=== PATIENT | female | born 1955 | race Two or more races ===

== ENCOUNTER 2024-01-29 02:54 | Inpatient (IN) | payer OTHER ==
[~2024-01-29] VITALS: Ht 154.9 cm; Wt 74.0 kg
[2024-01-29] VITALS (7 sets, daily range): BP systolic 117–126; BP diastolic 51–65; PULSE 70–87; RESP 18; TEMP 97.5–99.7; O2SAT 91–95
--- NOTE | 2024-01-29 03:35 | ED.PDOC ---
History of Present Illness HPI Comments 68-year-old female with PMHx COPD, Breast Cancer, Hypothyroidism brought in by EMS presents with a chief complaint of SOB, chest pain, and constipation x 3 days. Patient is a poor historian. Patient mentions that she has been having progressively worse SOB over the last 3 days. Patient mentions that her inhaler has not been providing any relief either. Patient is not on home oxygen, but arrives with oxygen via NC from EMS. Chief Complaint: Shortness of Breath Time Seen by MD: 03:17 Primary Care Provider: Albert Reviewed Notes: Medications, Allergies Allergies: Coded Allergies: NO KNOWN ALLERGIES (Unverified , 01/29/24) Information Source: Patient Mode of Arrival: EMS Severity: Moderate Timing: Days Duration: Since onset Prehospital treatment: Oxygen Review of Systems: REVIEW OF SYSTEMS: No fever, no chills, or fatigue HEENT: No sore throat, no earache, no congestion, no neck pain. Cardiac: Positive chest pain. No palpitations. Lungs: Positive shortness of breath, positive cough. GI: No nausea, no vomiting, no diarrhea, pause constipation, no abdominal pain : No dysuria, frequency, or urgency. No hematuria. Musculoskeletal: Positive shoulder pain , no joint swelling, no extremity edema. Skin: No rash, no itching. Neuro: No headache, no dizziness, no weakness Vital Signs Vital Signs Date Time Temp Pulse Resp B/P (MAP) Pulse Ox O2 Delivery O2 Flow Rate FiO2 01/29/24 04:06 17 94 Nasal Cannula* 2 28 01/29/24 03:35 71 01/29/24 03:05 99.2 120/64 (82) Physical Exam General: Awake, alert and oriented. No acute distress. Skin: Skin in warm, dry and intact. Appropriate color for ethnicity. Nailbeds pink with no cyanosis. HEENT: Nasal cannula in place. The head is normocephalic and atraumatic. Conjunctivae are clear without exudates or hemorrhage. Sclera is non-icteric. EOM are intact. No signs of nystagmus. Eyelids are normal in appearance without swelling or lesions. Oral mucosa is pink and moist Neck: The neck is supple with normal range of motion. No JVD. Cardiac: Heart rate and rhythm are normal. No murmurs, gallops, or rubs are auscultated. Respiratory: No signs of respiratory distress. Positive wheezing. Abdominal: Abdomen is soft, non-tender without distention. Bowel sounds are present and normoactive in all four quadrants. Extremities: Upper and lower extremities are atraumatic in appearance without deformity or edema. Neurological: The patient is awake, alert and oriented to person, place, and time with normal speech. Speech is clear. There is no facial asymmetry. Psychiatric: Appropriate mood and affect. Good judgement and insight. No visual or auditory hallucinations. 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 Was a procedure done?: No EKG EKG : Pulse Rate (adult): 71 Eleele: Normal Cardiac Rhythm: NSR Block: None Hypertrophy: None ST: Normal Comments No STEMI. Differential Dx Considerations may include: Differential diagnoses considered include acute ischemic coronary syndrome, aortic dissection, cardiac tamponade, mediastinitis, pulmonary embolus, pneumothorax, tension pneumothorax, esophageal rupture, coronary artery vasospasm, myocarditis, pericarditis, pneumonia, pulmonary edema, esophageal tear, pancreatitis, aortic stenosis, dilated cardiomyopathy, hypertrophic cardiomyopathy, mitral valve prolapse, malignancy, pleuritis, pneumomediastinum, primary pulmonary hypertension, cholecystitis, esophageal spasm, esophagus, gastritis, GERD, peptic ulcer disease, costochondritis, fibromyalgia, rib fracture, herpes zoster, radicular syndromes, thoracic outlet syndrome, somatization. X-Ray, Labs, Meds, VS Vital Signs Date Time Temp Pulse Resp B/P (MAP) Pulse Ox O2 Delivery O2 Flow Rate FiO2 01/29/24 04:06 17 94 Nasal Cannula* 2 28 01/29/24 04:06 94 Nasal Cannula* 2 28 01/29/24 03:35 71 01/29/24 03:05 99.2 64 21 120/64 (82) 90 01/29/24 02:59 71 Lab Test 01/29/24 04:15 01/29/24 03:48 01/29/24 03:30 Range/Units White Blood Count 9.3 4.4-10.8 10^3/uL Red Blood Count 3.09 L 4.0-5.20 10^6/uL Hemoglobin 11.6 L 12.2-16.2 g/dL Hematocrit 33.6 L 36.0-46.0 % Mean Corpuscular Volume 108.6 H 80.0-100.0 fL Mean Corpuscular Hemoglobin 37.5 H 28.0-32.0 pg Mean Corpuscular Hemoglobin Concent 34.5 32.0-36.0 g/dL Red Cell Distribution Width 16.2 H 11.8-14.3 % Platelet Count 282 140-450 10^3/uL Mean Platelet Volume 8.3 6.9-10.8 fL Neutrophils (%) (Auto) 64.3 37.0-80.0 % Lymphocytes (%) (Auto) 25.8 10.0-50.0 % Monocytes (%) (Auto) 7.6 0.0-12.0 % Eosinophils (%) (Auto) 1.0 0.0-7.0 % Basophils (%) (Auto) 1.3 0.0-2.0 % Neutrophils # (Auto) 6.0 1.6-8.6 10 ^3/uL Lymphocytes # (Auto) 2.4 0.4-5.4 10 ^3/uL Monocytes # (Auto) 0.7 0-1.3 10 ^3/uL Eosinophils # (Auto) 0.1 0-0.8 10 ^3/uL Basophils # (Auto) 0.1 0-0.2 10 ^3/uL Nucleated Red Blood Cells 0.2 % D-Dimer, Quantitative 0.78 H 0.0-0.49 mg/L FEU Sodium Level 139 136-145 mmol/L Potassium Level 4.0 3.5-5.1 mmol/L Chloride Level 103 98-107 mmol/L Carbon Dioxide Level 29 20-31 mmol/L Anion Gap 7 5-15 Blood Urea Nitrogen 9 9-23 mg/dL Creatinine 0.70 0.550-1.02 mg/dL Glomerular Filtration Rate Calc 94 >90 mL/min BUN/Creatinine Ratio 12.9 10.0-20.0 Serum Glucose 120 H 74-106 mg/dL Calcium Level 9.7 8.7-10.4 mg/dL Total Bilirubin 0.9 0.2-1.0 mg/dL Aspartate Amino Transferase (AST) 36 13-40 U/L Alanine Aminotransferase (ALT) 46 H 7-40 U/L Alkaline Phosphatase 87 46-116 U/L Troponin I High Sensitivity 5 </=34 ng/L B-Type Natriuretic Peptide 84.80 0-100 pg/mL Total Protein 7.2 5.7-8.2 g/dL Albumin 4.1 3.2-4.8 g/dL Blood Gas Specimen Type Arterial Blood Gas Sample Site Left radial Blood Gas Patient Temperature 37.0 Arterial Blood Date Drawn [id number] Arterial Blood pH 7.404 7.350-7.450 Arterial Blood Partial Pressure CO2 36.3 32.0-45.0 mmHg Arterial Blood Partial Pressure O2 76.2 L 83.0-108.0 mmHg Arterial Blood HCO3 22.2 21.0-28.0 mmol/L Arterial Blood Oxygen Saturation 94.5 94.0-98.0 % Arterial Blood Base Excess -2.1 L -2.0-3.0 mmol/L Arterial Blood Oxyhemoglobin 93.1 L 94.0-98.0 % Arterial Blood Carboxyhemoglobin 1.2 0.5-1.5 % Arterial Blood Methemoglobin 0.3 0.0-1.5 % Phani Test Modified Blood Gas Total Hemoglobin 12.20 12.0-16.0 g/dL Blood Gas Liter Flow 2.00 Blood Gas Modality Nasal cannula FiO2 % 28.0 Influenza Type A Antigen Negative Negative Influenza Type B Antigen Negative Negative SARS-CoV-2 Antigen (Rapid) Negative NEGATIVE Current Medications Medications (Trade) Dose Ordered Sig/Daniela Route Start Time Stop Time Status Last Admin Albuterol (Ventolin Medneb) 2.5 mg ONCE ONCE NEB 01/29/24 03:45 01/29/24 03:46 DC 01/29/24 03:57 Ipratropium Miles (Atrovent Medneb) 0.5 mg ONCE ONCE NEB 01/29/24 03:45 01/29/24 03:46 DC 01/29/24 03:57 Time of 1ST Reevaluation: 03:47 Reevaluation 1ST: Unchanged Patient Education/Counseling: Diagnosis, Treatment, Prognosis Family Education/Counseling: No Family Present Departure 1 Departure Time of Disposition: 05:41 Impression: Primary Impression: Chest pain Additional Impressions: Shortness of breath Hypoxia Disposition: 30 STILL A PATIENT Condition: Stable Comments 68-year-old female with history of COPD, breast cancer presents with chest pain, shortness of breath, hypoxia. D-dimer positive. Sign out to oncoming provider pending CT angiogram results and disposition Extensive evaluation was performed in attempt to identify or rule out: (See differential diagnosis section) The following tests were ordered, and results were reviewed by me: (See diagnostic results section) The following test were independently interpreted by me: Chest x-ray-no acute disease, EKG I reviewed and agreed with the following test results read by other providers: Chest x-ray I reviewed the following notes from the pt's past medical encounters: (None available at this time) Additional information was gathered from interviewing the following independent historians: N/A Discussion of management or test interpretation with external physician/other qualified health resident care aid: N/A Addressed one or more chronic illnesses with severe exacerbation, progression, or side effects of treatment: COPD an acute or chronic illness that poses a threat to life or bodily function: Hypoxia Decision regarding hospitalization or escalation of hospital level of care: Risk and benefits of admission for further treatment of patient's condition was considered. Due to patient's current clinical condition, high risk of decline and poor outcome if discharged and need for further inpatient management and monitoring, patient will be admitted to the hospital. Critical Care Note Critical Care Time?: No Stability Stability form required: No I personally scribed for ANDREA HARRIS MD ([email or web address]) on 01/29/24 at 03:35. Electronically submitted by Puma Prieto ([email or web address]). ANDREA HARRIS MD Jan 29, 2024 03:35
[2024-01-29] MEDS: ALBUTEROL SULF 2.5 MG/0.5ML(0.5%) NEB SOLN NEB ONE ×2 (03:57→07:30)
[2024-01-29] MEDS: IPRATROPIUM BROM 0.5 MG/2.5ML INH SOL NEB ONE ×2 (03:57→07:30)
[2024-01-29 04:16] LABS: Base Excess -2.1 mmol/L (-2.0-3.0)
[2024-01-29 04:27] LABS: Basophils # (auto) 0.1 10 ^3/uL (0-0.2); Eosinophils # (auto) 0.1 10 ^3/uL (0-0.8); Hemoglobin 11.6 g/dL (12.2-16.2); Lymphocytes # (auto) 2.4 10 ^3/uL (0.4-5.4); Red Cell Distribution Width 16.2 % (11.8-14.3)
[2024-01-29 04:29] LABS: Basophils % (auto) 1.3 % (0.0-2.0); Hematocrit 33.6 % (36.0-46.0); Lymphocytes % (auto) 25.8 % (10.0-50.0); Mean Corpuscular Hemoglobin 37.5 pg (28.0-32.0); Mean Corpuscular Hgb Conc. 34.5 g/dL (32.0-36.0); Mean Corpuscular Volume 108.6 fL (80.0-100.0); Monocytes # (auto) 0.7 10 ^3/uL (0-1.3); Monocytes % (auto) 7.6 % (0.0-12.0); Neutrophils % (auto) 64.3 % (37.0-80.0); Nucleated Red Blood Cells % 0.2 %; Platelet Count (auto) 282 10^3/uL (140-450); Red Blood Cells 3.09 10^6/uL (4.0-5.20); White Blood Cell 9.3 10^3/uL (4.4-10.8)
--- NOTE | 2024-01-29 04:29 | DVH ---
CHEST RADIOGRAPH Indication: Shortness of breath Technique: Single frontal view of the chest was obtained Comparison: None IMPRESSION: There is cardiomegaly. The lungs appear clear without focal airspace opacity, effusion, pneumothorax. Mild interstitial prominence.
[2024-01-29 04:54] LABS: Albumin 4.1 g/dL (3.2-4.8); Alkaline Phosphatase 87 U/L (46-116); Anion Gap 7 (5-15); Aspartate Aminotransferase 36 U/L (13-40); BUN/Creatinine Ratio 12.9 (10.0-20.0); Blood Urea Nitrogen 9 mg/dL (9-23); Calcium 9.7 mg/dL (8.7-10.4); Carbon Dioxide 29 mmol/L (20-31); Chloride 103 mmol/L (98-107); Sodium 139 mmol/L (136-145)
[2024-01-29 04:55] LABS: Bilirubin, Total 0.9 mg/dL (0.2-1.0); Total Protein 7.2 g/dL (5.7-8.2)
[2024-01-29 05:10] LABS: Alanine Aminotransferase 46 U/L (7-40); Glucose 120 mg/dL (74-106)
[2024-01-29 05:25] LABS: COVID19 ANTIGEN SOFIA FIA NEGATIVE (NEGATIVE); Rapid Influenza A Negative (Negative); Rapid Influenza B Negative (Negative)
--- NOTE | 2024-01-29 06:14 | ECG ---
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
[2024-01-29] MEDS: ENOXAPARIN SOD 80 MG/0.8ML SYRINGE SC ONE (07:34)
[2024-01-29] MEDS: methylPREDNISolone SOD SUCC 125 MG/2 ML VL IV ONE (07:34)
[2024-01-29] MEDS ORDERED: ACETAMINOPHEN 325 MG TAB PO PRN (10:45)
[2024-01-29] MEDS ORDERED: TEMAZEPAM 15 MG CAP PO PRN (10:45)
[2024-01-29] MEDS ORDERED: MAALOX PLUS or MAALOX 30 ML PO PRN (10:45)
[2024-01-29] MEDS ORDERED: LORazepam 0.5 MG TAB PO PRN (10:45)
--- NOTE | 2024-01-29 11:02 | DVHHP2 ---
History of Present Illness Reason for Visit: Shortness of breaths Cardiovascular: CAD Pulmonary: COPD Review of Systems Constitutional: Yes: Weakness; No: Fever, Chills, Sweats, Malaise, Other Eyes: No: Pain, Vision change, Conjunctivae inflammation, Eyelid inflammation, Other, Redness ENT: No: Ear pain, Ear discharge, Nose pain, Nose discharge, Nose congestion, Mouth pain, Mouth swelling, Throat pain, Throat swelling, Other Respiratory: Cough, Shortness of breath; No: Dry, SOB with excertion, Wheezing, Hemoptysis, Pleuritic Pain, Sputum, Wheezing, Other Cardiovascular: Chest Pain, Palpitations; No: Orthopnea, Paroxysmal Noc. Dyspnea, Edema, Lt Headedness, Other Gastrointestinal: No: Nausea, Vomiting, Abdominal Pain, Diarrhea, Constipation, Melena, Hematochezia, Other Genitourinary: No Dysuria, No Frequency, No Incontinence, No Hematuria, No Retention, No Other Musculoskeletal: No: other, neck pain, shoulder pain, arm pain, back pain, hand pain, leg pain, foot pain Skin: No: Rash, Lesions, Jaundice, Bruising, Other Neurological: No: Weakness, Numbness, Incoordination, Change in speech, Confusion, Seizures, Other Allergies: Coded Allergies: NO KNOWN ALLERGIES (Unverified , 01/29/24) Exam Vital Signs Vital Signs Date Time Temp Pulse Resp B/P (MAP) Pulse Ox O2 Delivery O2 Flow Rate FiO2 01/29/24 08:00 99.7 70 16 123/44 (70) 97 99.7 01/29/24 08:00 Nasal Cannula* 4 36 General Appearance: Alert, Oriented X3, Cooperative HEENT: Atraumatic, PERRLA Respiratory: Clear to auscultation (Mild wheezing), Normal air movement Cardiovascular: Regular rate, Normal S1, Normal S2 Abdominal: Normal bowel sounds, Soft, No tenderness Extremities: No clubbing, No cyanosis Skin: No rashes, No breakdown Neuro: Normal gait, Normal speech Psych/Mental Status: Mood NL Labs/Xrays Labs Test 01/29/24 04:15 01/29/24 03:48 01/29/24 03:30 Range/Units White Blood Count 9.3 4.4-10.8 10^3/uL Red Blood Count 3.09 L 4.0-5.20 10^6/uL Hemoglobin 11.6 L 12.2-16.2 g/dL Hematocrit 33.6 L 36.0-46.0 % Mean Corpuscular Volume 108.6 H 80.0-100.0 fL Mean Corpuscular Hemoglobin 37.5 H 28.0-32.0 pg Mean Corpuscular Hemoglobin Concent 34.5 32.0-36.0 g/dL Red Cell Distribution Width 16.2 H 11.8-14.3 % Platelet Count 282 140-450 10^3/uL Mean Platelet Volume 8.3 6.9-10.8 fL Neutrophils (%) (Auto) 64.3 37.0-80.0 % Lymphocytes (%) (Auto) 25.8 10.0-50.0 % Monocytes (%) (Auto) 7.6 0.0-12.0 % Eosinophils (%) (Auto) 1.0 0.0-7.0 % Basophils (%) (Auto) 1.3 0.0-2.0 % Neutrophils # (Auto) 6.0 1.6-8.6 10 ^3/uL Lymphocytes # (Auto) 2.4 0.4-5.4 10 ^3/uL Monocytes # (Auto) 0.7 0-1.3 10 ^3/uL Eosinophils # (Auto) 0.1 0-0.8 10 ^3/uL Basophils # (Auto) 0.1 0-0.2 10 ^3/uL Nucleated Red Blood Cells 0.2 % D-Dimer, Quantitative 0.78 H 0.0-0.49 mg/L FEU Sodium Level 139 136-145 mmol/L Potassium Level 4.0 3.5-5.1 mmol/L Chloride Level 103 98-107 mmol/L Carbon Dioxide Level 29 20-31 mmol/L Anion Gap 7 5-15 Blood Urea Nitrogen 9 9-23 mg/dL Creatinine 0.70 0.550-1.02 mg/dL Glomerular Filtration Rate Calc 94 >90 mL/min BUN/Creatinine Ratio 12.9 10.0-20.0 Serum Glucose 120 H 74-106 mg/dL Calcium Level 9.7 8.7-10.4 mg/dL Total Bilirubin 0.9 0.2-1.0 mg/dL Aspartate Amino Transferase (AST) 36 13-40 U/L Alanine Aminotransferase (ALT) 46 H 7-40 U/L Alkaline Phosphatase 87 46-116 U/L Troponin I High Sensitivity 5 </=34 ng/L B-Type Natriuretic Peptide 84.80 0-100 pg/mL Total Protein 7.2 5.7-8.2 g/dL Albumin 4.1 3.2-4.8 g/dL Blood Gas Specimen Type Arterial Blood Gas Sample Site Left radial Blood Gas Patient Temperature 37.0 Arterial Blood Date Drawn [id number] Arterial Blood pH 7.404 7.350-7.450 Arterial Blood Partial Pressure CO2 36.3 32.0-45.0 mmHg Arterial Blood Partial Pressure O2 76.2 L 83.0-108.0 mmHg Arterial Blood HCO3 22.2 21.0-28.0 mmol/L Arterial Blood Oxygen Saturation 94.5 94.0-98.0 % Arterial Blood Base Excess -2.1 L -2.0-3.0 mmol/L Arterial Blood Oxyhemoglobin 93.1 L 94.0-98.0 % Arterial Blood Carboxyhemoglobin 1.2 0.5-1.5 % Arterial Blood Methemoglobin 0.3 0.0-1.5 % Phani Test Modified Blood Gas Total Hemoglobin 12.20 12.0-16.0 g/dL Blood Gas Liter Flow 2.00 Blood Gas Modality Nasal cannula FiO2 % 28.0 Influenza Type A Antigen Negative Negative Influenza Type B Antigen Negative Negative SARS-CoV-2 Antigen (Rapid) Negative NEGATIVE Assessment/Plan Assessment/Plan Admit to [facility] COPD exacerbation We will be treated as pneumonia Associated chest pain with the shortness of breath believed to be pleuritic in nature Tropes were completed and negative Not believed to be cardiac in nature However we will manage and monitor for acute changes IV antibiotics P.o. antibiotics P.r.n. breathing treatments Steroids Plan discussed with: Patient My Orders Orders - NAT MATOS MD Procedure Category Date Status Time Albuterol Medneb PHA 01/29/24 Verified (Ventolin Medneb) 10:45 Ipratropium Medneb PHA 01/29/24 Verified (Atrovent Medneb) 10:45 Med Neb Initial RT 01/29/24 Verified Treatment 10:36 Methylprednisolone PHA 01/29/24 Verified Sod Succ (Solu Medrol 22:00 Admit ADMIT 01/29/24 Verified 10:36 Code Status CODE 12/12/24 Verified 10:36 Vital Signs CAREN 01/29/24 Verified 10:36 Review Orders With [facility] 01/29/24 Verified Adm. 10:36 Regular Diet DIET 01/29/24 Verified Lunch Lorazepam Tablet [facility] 01/29/24 Verified (Ativan Tablet) 10:45 Alum & Mag PHA 01/29/24 Verified Hydrox-Simethicone 10:45 Docusate Sodium [facility] 01/29/24 Verified Capsule (Colace 10:45 Acetaminophen Tablet [facility] 01/29/24 Verified (Tylenol Tablet) 10:45 Temazepam (Restoril) [facility] 01/29/24 Verified 10:45 Notify Md Of Changes [facility] 01/29/24 Verified From Base 10:36 Advance Directive [facility] 01/29/24 Verified 10:36 Basic Metabolic Panel LAB 01/30/24 Verified 04:00 Urinalysis LAB 01/29/24 Verified 10:36 Complete Blood Count LAB 01/29/24 Verified 10:36 Patient Condition ORDERS 01/29/24 Verified 10:36 Allergies [facility] 01/29/24 Verified 10:36 Hydrocodone-Acet [facility] 01/29/24 Verified 5/325mg Tab ([place] 10:45 Ondansetron Hcl [facility] 01/29/24 Verified (Zofran) 10:45 Drug Screen LAB 01/29/24 Verified 10:36 Morphine 2mg Iv Q4hprn [facility] 01/29/24 Verified 10:45 Notify Md Of Changes [facility] 01/29/24 Verified From Base 10:36 Oxygen By Nasal RT 01/29/24 Verified Cannula 10:36 Problem List: (1) COPD with exacerbation (2) COPD with acute exacerbation (3) Shortness of breath (4) Hypoxia (5) Chest pain Date of Service: Jan 29, 2024 Billing Provider: NAT MATOS MD Common Visit Codes: [id number] INP/OBS CARE (HIGH) NAT MATOS MD Jan 29, 2024 11:02
[2024-01-29] MEDS: MORPHINE SULFATE INJ 2 MG/ml SYRG IV PRN (11:38)
[2024-01-29] MEDS: ONDANSETRON HCL 4 MG/2 ML VIAL IV PRN (11:38)
[2024-01-29 12:15] LABS: Basophils # (auto) 0.1 10 ^3/uL (0-0.2); Eosinophils # (auto) 0 10 ^3/uL (0-0.8); Hemoglobin 12.2 g/dL (12.2-16.2); Lymphocytes # (auto) 0.7 10 ^3/uL (0.4-5.4); Monocytes # (auto) 0.2 10 ^3/uL (0-1.3); Nucleated Red Blood Cells % 0.1 %
[2024-01-29 12:16] LABS: Basophils % (auto) 0.9 % (0.0-2.0); Hematocrit 36.1 % (36.0-46.0); Mean Corpuscular Hemoglobin 36.8 pg (28.0-32.0); Mean Corpuscular Hgb Conc. 33.8 g/dL (32.0-36.0); Mean Corpuscular Volume 108.6 fL (80.0-100.0); Monocytes % (auto) 2.9 % (0.0-12.0); Neutrophils # (auto) 6.4 10 ^3/uL (1.6-8.6); Neutrophils % (auto) 87.2 % (37.0-80.0); Platelet Count (auto) 310 10^3/uL (140-450); Red Blood Cells 3.32 10^6/uL (4.0-5.20); White Blood Cell 7.3 10^3/uL (4.4-10.8)
[2024-01-29] MEDS: HYDROcodone-ACET 5/325MG TAB PO PRN (21:22)
[2024-01-29] MEDS: methylPREDNISolone SOD SUCC 40 MG/ML VL IV SCH (21:23)
[2024-01-29] MEDS: DOCUSATE SOD 100 MG CAP PO PRN (21:31)
[2024-01-30] VITALS (13 sets, daily range): BP systolic 106–128; BP diastolic 48–59; PULSE 61–80; RESP 14–20; TEMP 97.5–98.8; O2SAT 92–98
[2024-01-30 07:45] LABS: Chloride 106 mmol/L (98-107); Potassium 4.7 mmol/L (3.5-5.1); Sodium 140 mmol/L (136-145)
[2024-01-30 07:46] LABS: Anion Gap 3 (5-15); Carbon Dioxide 31 mmol/L (20-31)
[2024-01-30 07:52] LABS: BUN/Creatinine Ratio 16.4 (10.0-20.0); Blood Urea Nitrogen 12 mg/dL (9-23)
[2024-01-30 07:59] LABS: Glucose 131 mg/dL (74-106)
[2024-01-30 10:33] LABS: Urine Bacteria None Seen /hpf (None Seen)
[2024-01-30] MEDS: POLYETHYLENE GLYCOL 17 GM PWDR PO ONE (10:57)
[2024-01-30 10:59] LABS: Urine Blood Negative /uL (Negative); Urine Clarity Clear (Clear); Urine Color Light-Yellow (Yellow); Urine Protein, UAD Negative (Negative); Urine Specific Gravity 1.017 (1.001-1.035); Urine Urobilinogen Normal (Negative); Urine WBC 2 /hpf (0 - 5)
[2024-01-30 11:05] LABS: Amphetamine Screen, Urine Neg (NEGATIVE)
[2024-01-30 11:06] LABS: Barbiturate Scree,Urine Neg (NEGATIVE); Benzodiazephine Screen, Urine Neg (NEGATIVE); Cocaine Screen, Urine Neg (NEGATIVE)
[2024-01-30 11:07] LABS: Opiate Scree,Urine Pos (NEGATIVE)
[2024-01-30 11:08] LABS: Cannabinoid Screen, Urine Neg (NEGATIVE); Phencyclidine Screen, Urine Neg (NEGATIVE)
--- NOTE | 2024-01-30 14:09 | DVHPN2 ---
Assessment/Plan Assessment/Plan Progress note Subjective 68 F with COPD admitted for COPDe. Seen patient today during rounds speaking in full sentences, reported constipation. breathing unchanged, no sick contact. Objective Physical exam Alert, oriented x3 on NC, speaking full sentences PERRLA no JVD Bilateral rhonchi, decreased breath sound on L lung S1-S2 RRR Abdomen soft nontender, no organomegaly Moving all four extremities LE extremity edema Lab Hb 11 MCV 108 UDS opiates UA clear Imaging CXR clear Assessment and plan chest pain likely pleurisy acute on chronic respiratory failure complex pneumonia with possible effusion slow transit constipation c/w ceft and azithro albuterol, ipatropium nebs prednisone lung POCUS miralax resume home meds Replete electrolytes Diet HH DVT prophylaxis lovenox Plan discussed with: Patient Date of Service: Jan 30, 2024 Billing Provider: SHELLEY NIEOT MD Common Visit Codes: [id number] INP/OBS CARE(HIGH) SHELLEY NIETO MD Jan 30, 2024 14:09
[2024-01-30] MEDS: IPRATROPIUM BROM 0.5 MG/2.5ML INH SOL NEB PRN (15:15)
[2024-01-30] MEDS: ALBUTEROL SULF 2.5 MG/0.5ML(0.5%) NEB SOLN NEB PRN (15:15)
[2024-01-31] VITALS (12 sets, daily range): BP systolic 88–145; BP diastolic 55–75; PULSE 65–99; RESP 16–20; TEMP 97.6–98; O2SAT 90–99
[2024-01-31 07:02] LABS: Basophils # (auto) 0 10 ^3/uL (0-0.2); Eosinophils # (auto) 0 10 ^3/uL (0-0.8); Monocytes # (auto) 0.6 10 ^3/uL (0-1.3)
[2024-01-31 07:04] LABS: Basophils % (auto) 0.5 % (0.0-2.0); Hematocrit 34.6 % (36.0-46.0); Lymphocytes # (auto) 1.7 10 ^3/uL (0.4-5.4); Lymphocytes % (auto) 20.8 % (10.0-50.0); Mean Corpuscular Hemoglobin 37.8 pg (28.0-32.0); Mean Corpuscular Hgb Conc. 34.6 g/dL (32.0-36.0); Mean Corpuscular Volume 109.4 fL (80.0-100.0); Monocytes % (auto) 7.7 % (0.0-12.0); Neutrophils # (auto) 5.7 10 ^3/uL (1.6-8.6); Platelet Count (auto) 319 10^3/uL (140-450); Red Blood Cells 3.16 10^6/uL (4.0-5.20); Red Cell Distribution Width 16.2 % (11.8-14.3)
[2024-01-31 07:08] LABS: Chloride 103 mmol/L (98-107); Potassium 4.4 mmol/L (3.5-5.1); Sodium 139 mmol/L (136-145)
[2024-01-31 07:09] LABS: Anion Gap 7 (5-15); Carbon Dioxide 29 mmol/L (20-31)
[2024-01-31 07:10] LABS: Calcium 9.6 mg/dL (8.7-10.4)
[2024-01-31 07:15] LABS: Blood Urea Nitrogen 18 mg/dL (9-23)
[2024-01-31 07:21] LABS: Glucose 132 mg/dL (74-106)
[2024-01-31] MEDS ORDERED: IBUP-1453 PO (13:44)
[2024-01-31] MEDS ORDERED: PRED20TA2 PO (13:44)
[2024-01-31] MEDS ORDERED: LEVO500T91 PO (13:44)
--- NOTE | 2024-01-31 13:47 | DVHDS2 ---
Discharge Summary Date of Admission Jan 29, 2024 at 10:36 Date of Discharge: Jan 31, 2024 Labs/Diagnostic Data: Laboratory Results Test 01/31/24 05:29 01/30/24 08:45 01/29/24 04:15 01/29/24 03:48 White Blood Count 8.0 10^3/uL (4.4-10.8) Red Blood Count 3.16 10^6/uL (4.0-5.20) Hemoglobin 12.0 g/dL (12.2-16.2) Hematocrit 34.6 % (36.0-46.0) Mean Corpuscular Volume 109.4 fL (80.0-100.0) Mean Corpuscular Hemoglobin 37.8 pg (28.0-32.0) Mean Corpuscular Hemoglobin Concent 34.6 g/dL (32.0-36.0) Red Cell Distribution Width 16.2 % (11.8-14.3) Platelet Count 319 10^3/uL (140-450) Mean Platelet Volume 8.8 fL (6.9-10.8) Neutrophils (%) (Auto) 71.0 % (37.0-80.0) Lymphocytes (%) (Auto) 20.8 % (10.0-50.0) Monocytes (%) (Auto) 7.7 % (0.0-12.0) Eosinophils (%) (Auto) 0.0 % (0.0-7.0) Basophils (%) (Auto) 0.5 % (0.0-2.0) Neutrophils # (Auto) 5.7 10 ^3/uL (1.6-8.6) Lymphocytes # (Auto) 1.7 10 ^3/uL (0.4-5.4) Monocytes # (Auto) 0.6 10 ^3/uL (0-1.3) Eosinophils # (Auto) 0 10 ^3/uL (0-0.8) Basophils # (Auto) 0 10 ^3/uL (0-0.2) Nucleated Red Blood Cells 0.0 % Sodium Level 139 mmol/L (136-145) Potassium Level 4.4 mmol/L (3.5-5.1) Chloride Level 103 mmol/L (98-107) Carbon Dioxide Level 29 mmol/L (20-31) Anion Gap 7 (5-15) Blood Urea Nitrogen 18 mg/dL (9-23) Creatinine 0.82 mg/dL (0.550-1.02) Glomerular Filtration Rate Calc 78 mL/min (>90) BUN/Creatinine Ratio 22.0 (10.0-20.0) Serum Glucose 132 mg/dL (74-106) Calcium Level 9.6 mg/dL (8.7-10.4) Urine Color Light-yellow (Yellow) Urine Clarity Clear (Clear) Urine pH 6.0 (5.0-9.0) Urine Specific [place] 1.017 (1.001-1.035) Urine Protein Negative (Negative) Urine Ketones Negative (Negative) Urine Blood Negative /uL (Negative) Urine Nitrite Negative (Negative) Urine Bilirubin Negative (Negative) Urine Urobilinogen Normal mg/dL (Negative) Urine Leukocyte Esterase Negative /uL (Negative) Urine RBC 1 /hpf (0 - 4) Urine WBC 2 /hpf (0 - 5) Urine Squamous Epithelial Cells Few /hpf (<5) Urine Bacteria None seen /hpf (None Seen) Urine Glucose Normal mg/dL (Normal) Urine Opiates Screen Pos (NEGATIVE) Urine Fentanyl Screen Neg (NEGATIVE) Urine Barbiturates Screen Neg (NEGATIVE) Urine Phencyclidine Screen Neg (NEGATIVE) Urine Amphetamines Screen Neg (NEGATIVE) Urine Benzodiazepines Screen Neg (NEGATIVE) Urine Cocaine Screen Neg (NEGATIVE) Urine Cannabinoids Screen Neg (NEGATIVE) D-Dimer, Quantitative 0.78 mg/L FEU (0.0-0.49) Total Bilirubin 0.9 mg/dL (0.2-1.0) Aspartate Amino Transferase (AST) 36 U/L (13-40) Alanine Aminotransferase (ALT) 46 U/L (7-40) Alkaline Phosphatase 87 U/L (46-116) Troponin I High Sensitivity 5 ng/L (</=34) B-Type Natriuretic Peptide 84.80 pg/mL (0-100) Total Protein 7.2 g/dL (5.7-8.2) Albumin 4.1 g/dL (3.2-4.8) Blood Gas Specimen Type Arterial Blood Gas Sample Site Left radial Blood Gas Patient Temperature 37.0 Arterial Blood Date Drawn [id number] Arterial Blood pH 7.404 (7.350-7.450) Arterial Blood Partial Pressure CO2 36.3 mmHg (32.0-45.0) Arterial Blood Partial Pressure O2 76.2 mmHg (83.0-108.0) Arterial Blood HCO3 22.2 mmol/L (21.0-28.0) Arterial Blood Oxygen Saturation 94.5 % (94.0-98.0) Arterial Blood Base Excess -2.1 mmol/L (-2.0-3.0) Arterial Blood Oxyhemoglobin 93.1 % (94.0-98.0) Arterial Blood Carboxyhemoglobin 1.2 % (0.5-1.5) Arterial Blood Methemoglobin 0.3 % (0.0-1.5) Phani Test Modified Blood Gas Total Hemoglobin 12.20 g/dL (12.0-16.0) Blood Gas Liter Flow 2.00 Blood Gas Modality Nasal cannula FiO2 % 28.0 Test 01/29/24 03:30 Influenza Type A Antigen Negative (Negative) Influenza Type B Antigen Negative (Negative) SARS-CoV-2 Antigen (Rapid) Negative (NEGATIVE) Other Laboratory Tests 01/31/24 05:29 Brief Hx & Hospital Course: 68 F admitted for chest pain likely from pleurisy, COPD exacerbation received steroidis and treatment, discharge with levaquin and prednisone. POCUS done, no pleural effusion, B line or consolidation. Stable to DC home Condition at Discharge: Good Final Diagnosis/Problems List COPD group E with exacerbation Discharge Disposition: Home Discharge Instruct/Medications Diet: Cardiac 2g Na,low cholest Activity: No Restrictions, As Tolerated Follow Up/Referral: PCP Medications: levaquin prednisone 39 Discharge Statement: "Patient was advised to return to the ER or call 911 if any headaches, dizziness, shortness of breath, chest pain, abdominal pain, bleeding, fevers, or worsening of medical condition. Patient was counseled about treatment plan, medications, possible side effects, patientverbalized understanding. All questions were answered to the best of my ability. This discharge took greater then 30 minutes in planning, reviewing documentation, counseling the patient, and discussing with other team members." ASSESSMENT ASSESSMENT Assessment chest pain likely pleurisy vs costocondritis acute on chronic respiratory failure CAP no pleural effusion slow transit constipation Date of Service: Jan 31, 2024 Billing Provider: SHELLEY NIETO MD Common Visit Codes: [id number] DISCH DAY >30min, PROCEDURE ONLY (Cardiac point of care ultrasound [id number]) SHELLEY NIETO MD Jan 31, 2024 13:47
[2024-01-31] MEDS ORDERED: IOHEXOL 350 MG/ML 100ML IJ ONE (16:25)
--- NOTE | 2024-01-31 17:09 | DVH ---
CLINICAL INFORMATION: 68 years old, Female; pulmonary embolism. TECHNIQUE: Axial CTA images of the chest were obtained after the uneventful administration of 100 mL of Omnipaque 350 IV contrast. Coronal and sagittal reformatted images and MIP images were obtained, reviewed, and stored. One or more of the following dose reduction techniques were used: Automated exp osure control. Adjustment of mA and/or kV according to patient size. CTDIvol = 17.74, 20.85 mGy DLP = 658.42 mGy-cm COMPARISON: None FINDINGS: Pulmonary arteries: No central or lobar pulmonary embolism. Evaluation for segmental or subsegmental pulmonary emboli is limited due to suboptimal contrast opacification of the pulmonary arteries. Aorta: Ectatic ascending aorta measuring up to 4 cm in diameter. No dissection. Moderate atheroscler otic calcification. Cardiac: Mild to moderate cardiomegaly. Dense coronary artery calcification. Mediastinum/catherine: No mass or adenopathy. Lungs: Lungs are clear. No focal consolidation. No pneumothorax or pleural effusion. Chest wall: There are surgical clips in the left axillary region. Upper abdomen: Hepatic steatosis. Nodular contour of the liver with relative enlargement of the left hepatic lobe, may be seen with cirrhosis in the appropriate clinical setting. Bones: No fracture or suspicious intraosseous lesions. IMPRESSION: 1. No central or lobar pulmonary embolism. Evaluation for segmental or subsegmental pulmonary emboli is limited due to suboptimal contrast opacification of the pulmonary arteries. 2. Ectatic ascending aorta. No dissection. 3. [id number] cardiomegaly with dense coronary artery calcification. 4. No focal consolidation, pneumothorax, or pleural effusion. 5. Cirrhotic liver morphology.
[2024-02-01] VITALS (8 sets, daily range): BP systolic 84–130; BP diastolic 52–75; PULSE 66–73; RESP 17–19; TEMP 97.6–98.4; O2SAT 92–96
== END 2024-02-01 10:53 | disposition home or self-care (01) | DRG 205 ==
LOC: ER 02:54 → EDSEX 02:54 → EDBD 02:54 → OVERFLOW 10:36 → TELE-E-ADS 17:12
PROVIDERS: ADMIT Hospitalist; ATTEND Student in an Organized Health Care Education/Training Program
DX: M94.0 Chondrocostal junction syndrome [Tietze] (principal); J96.21 Acute and chronic respiratory failure with hypoxia; J44.1 Chronic obstructive pulmonary disease with (acute) exacerbation; Z20.822 Contact with and (suspected) exposure to COVID-19; E03.9 Hypothyroidism, unspecified; K59.01 Slow transit constipation; I25.10 Atherosclerotic heart disease of native coronary artery without angina pectoris; Z85.3 Personal history of malignant neoplasm of breast; Z87.891 Personal history of nicotine dependence
CPT/HCPCS: 36415; 36600; 71045; 71275; 80048; 80053; 80307; 81001; 82805; 83880; 84484; 85025; 85379; 87426; 87804; 93005; 94640; 96372; 96374; 96375; G0378; J2405